=== PATIENT | male | born 1960 | race Caucasian/White ===

== ENCOUNTER 2022-10-09 11:17 | Day surgery (SDC) | payer BC ==
[2022-10-07 13:52] VITALS: BMI 31.5
[2022-10-09] MEDS ORDERED: PROPOFOL 200 MG/20 ML VIAL ONE (12:15)
[2022-10-09] MEDS ORDERED: fentaNYL 50 mcg/mL 1 mL Vial ONE ×2 (13:06→13:20)
== END 2022-10-09 14:30 | disposition home or self-care (01) ==
LOC: MRI 11:17
PROVIDERS: ATTEND Family Medicine
DX: M50.223 Other cervical disc displacement at C6-C7 level (principal)
CPT/HCPCS: 72141; J2704; J3010

== ENCOUNTER 2022-11-13 06:11 | Day surgery (SDC) | payer BC ==
[2022-11-12 09:23] VITALS: BMI 31.5
[2022-11-13] MEDS ORDERED: fentaNYL 50 mcg/mL 1 mL Vial ONE (06:52)
[2022-11-13] MEDS ORDERED: Midazolam HCl 2 mg/2 ml Vial ONE (06:52)
== END 2022-11-13 07:50 | disposition home or self-care (01) ==
LOC: MRI 06:11
PROVIDERS: ATTEND Family Medicine
DX: M25.511 Pain in right shoulder (principal); M25.512 Pain in left shoulder
CPT/HCPCS: J2250; J3010